=== PATIENT | male | born 1945 | race Two or more races ===

== ENCOUNTER 2019-12-22 07:30 | Outpatient (CLI) | payer OTHER | END 2019-12-22 07:38 | disposition home or self-care (01) | LOC: SONOGRAMA 07:30 | PROVIDERS: ATTEND Internal Medicine Hepatology | DX: K76.0 Fatty (change of) liver, not elsewhere classified (principal) ==

== ENCOUNTER 2019-12-22 08:20 | Outpatient (CLI) | payer OTHER | END 2019-12-22 08:32 | disposition home or self-care (01) | LOC: LAB 08:20 | PROVIDERS: ATTEND Obstetrics & Gynecology | DX: I11.9 Hypertensive heart disease without heart failure (principal); K74.60 Unspecified cirrhosis of liver; E11.69 Type 2 diabetes mellitus with other specified complication; E11.22 Type 2 diabetes mellitus with diabetic chronic kidney disease; R80.8 Other proteinuria; K70.9 Alcoholic liver disease, unspecified; E03.0 Congenital hypothyroidism with diffuse goiter; M54.5 Low back pain ==

== ENCOUNTER 2022-02-13 12:46 | Emergency (ER) | payer OTHER ==
[~2022-02-13] VITALS: Ht 185.4 cm; Wt 101.6 kg
[2022-02-13] MEDS ORDERED: METFORMIN HCL500 M3 PO (13:30)
[2022-02-13] MEDS ORDERED: LANTUS SOL100 UNIT/1 SQ (13:34)
[2022-02-13] MEDS ORDERED: HUMALOG100 UNIT/2 (13:34)
== END 2022-02-13 22:14 | disposition left against medical advice (07) ==
LOC: ER 12:46
DX: K74.60 Unspecified cirrhosis of liver (principal); Z20.822 Contact with and (suspected) exposure to COVID-19; Z88.0 Allergy status to penicillin; K71.51 Toxic liver disease with chronic active hepatitis with ascites; K42.9 Umbilical hernia without obstruction or gangrene; I10 Essential (primary) hypertension; E11.9 Type 2 diabetes mellitus without complications; Z79.4 Long term (current) use of insulin; Z79.84 Long term (current) use of oral hypoglycemic drugs